=== PATIENT | female | born 1990 | race Hispanic/Latino ===

== ENCOUNTER 2016-11-28 06:08 | Inpatient (IN) | payer OTHER ==
[2016-11-28] VITALS (8 sets, daily range): BP systolic 92–112; BP diastolic 49–62
[~2016-11-28] VITALS: Ht 165.1 cm; Wt 89.1 kg
[~2016-11-28 06:08] MED LIST: PRENATAL TABLE1 EAC3 PO
[2016-11-28] MEDS ORDERED: IBUPROFEN800 MG PO (09:16)
[2016-11-28] MEDS ORDERED: ENDOCET 5-3251 EACH PO (09:16)
[2016-11-29 07:10] LABS: EOSINOPHIL (%) 0.7 % (0-5); EOSINOPHIL COUNT 0.1 K/uL (0-0.3); HEMATOCRIT 24.9 % (36.0-46.0); IMMATURE GRANULOCYTE (%) 0.5 % (0.0-0.7); INSTRUMENT ABS NEUTROPHIL CT 5.9 K/uL; LYMPHOCYTE COUNT 1.8 K/uL (1.0-2.8); MCH 28.5 PG (29.0-34.0); MCHC 32.1 G/DL (30.0-36.0); MCV 88.6 FL (83-99); MONOCYTE COUNT 0.6 K/uL (0-0.8); NEUTROPHIL (%) 70.7 % (45-76); NEUTROPHIL COUNT 5.9 K/uL (1.8-6.4); PLATELET COUNT 97 K/uL (156-360); RBC DIS.WIDTH-SD 61.9 % (39-53); WHITE BLOOD COUNT 8.4 K/uL (4.1-10.2)
[2016-11-29 07:13] LABS: RED BLOOD COUNT 2.81 M/uL (3.80-5.20)
[2016-11-29 07:40] VITALS: BP 103/57
[2016-11-29 11:24] VITALS: BP 101/53
[2016-11-29 15:30] VITALS: BP 113/57
[2016-11-29 19:00] VITALS: BP 104/59
[2016-11-29 23:00] VITALS: BP 97/54
[2016-11-30 03:00] VITALS: BP 95/55
[2016-11-30 07:32] VITALS: BP 99/50
[2016-11-30 15:13] VITALS: BP 110/63
[2016-11-30 23:00] VITALS: BP 108/54
[2016-12-01 07:58] VITALS: BP 110/65
[2016-12-01 15:00] VITALS: BP 109/58
[2016-12-01 23:30] VITALS: BP 115/73
[2016-12-02 07:28] VITALS: BP 118/63
[2016-12-02 15:25] VITALS: BP 118/62
== END 2016-12-02 18:19 | disposition home or self-care (01) | DRG 765 ==
LOC: 2SOUTH → 2WEST 06:08 → 2SOUTH 09:55 → 2WEST 12-02 18:19
PROVIDERS: Obstetrics & Gynecology
DX: O34.211 Maternal care for low transverse scar from previous cesarean delivery (principal); D62 Acute posthemorrhagic anemia; Z3A.39 39 weeks gestation of pregnancy; Z37.0 Single live birth; Z30.2 Encounter for sterilization; O99.824 Streptococcus B carrier state complicating childbirth; D50.9 Iron deficiency anemia, unspecified; Z87.891 Personal history of nicotine dependence; O99.02 Anemia complicating childbirth
CPT/HCPCS: 36415; 85025; 86900; 86901; 88302; J1170; J1885; J2175; J2250; J2274; J2405; J2590; J3010; J7030; J7120